=== PATIENT | female | born 1985 | race Caucasian/White ===

== ENCOUNTER 2019-10-04 12:21 | Outpatient (REF) | payer BC, SELFPAY ==
[2019-10-04 14:55] LABS: Bilirubin Negative (Negative); Blood Trace-intact (Negative); Clarity Clear (Clear); Glucose Negative (Negative); Ketones Negative (Negative); Leukocyte Esterase Small (Negative); Nitrite Negative (Negative); Urobilinogen 0.2 EU/dL (Up TO 0.2); pH 6.5 (5-8)
[2019-10-04 15:09] LABS: Bacteria Few HPF (Negative); Crystals Negative HPF (Negative); Epithelial Cells Moderate HPF (Negative); Mucus Negative (Negative); RBC 0-2 HPF (0-2)
[2019-10-04 15:10] LABS: C & S Indicated? C&S Done As Ordered
== END 2019-10-04 12:41 ==
LOC: NCHCN 12:21
PROVIDERS: PCP Nurse Practitioner Adult Health; Visit Provider Nurse Practitioner
DX: R10.31 Right lower quadrant pain (principal)
CPT/HCPCS: 81003; 81015; 87086

== ENCOUNTER 2020-02-23 12:54 | Emergency (ER) | payer BC, SELFPAY ==
[2020-02-23] VITALS (31 sets, daily range): BP systolic 98–152; BP diastolic 46–85; PULSE 68–96; RESP 1–28; TEMP 36.5–36.6; O2SAT 88–100
--- NOTE | 2020-02-23 12:59 | W.ED.GENAD ---
Discharge Plan Disposition Patient Disposition: HOME Condition: Improving Discharge Details Clinical Impression: Allergic reaction Primary Care Provider: Yvonne Singh ED Provider: Rosalva Alatorre Home Meds and New Rx's Prescriptions: New prednisone 20 mg tablet 40 mg PO DAILY Qty: 8 RF: 0 Continued multivitamin [Daily Multi-Vitamin] 1 EACH tablet 1 ea PO RF: 0 clobetasol 0.05 % ointment 1 applic TP .COMPLEX 42 Days Qty: 15 RF: 2 epinephrine 0.3 mg/0.3 mL auto-injector RF: 0 loratadine 10 mg tablet RF: 0 levalbuterol tartrate [Xopenex HFA] 45 mcg/actuation HFA aerosol inhaler INHALATION RF: 0 Discharge Instructions Instructions: General Allergic Reaction (ED) Additional Instructions: You may continue with your inhaler and Benadryl as previously advised. Please take the prednisone as prescribed. Please use your EpiPen if you develop shortness of breath, difficulty breathing, swelling of your throat or mouth. Please keep your upcoming appointment with allergy at [facility]. Please return if you have use your EpiPen or you develop other new or worsening symptoms. Referrals: Yvonne Singh [Primary Care Provider] - Discharge Data Discharge Date/Time-TO BE ENTERED AT DEPARTURE: 02/23/20 15:42 Medical Decision Making Patient is a pleasant 34-year-old female, accompanied by mother, with chief complaint of allergic reaction. She reports that approximate hour prior to arrival she began to have recurrent allergic reaction. She reports that she is had 6 of these since September, unclear what her allergen is. She reports that she does have an upcoming allergy testing scheduled at [facility]. She reports that today symptoms seem to come on more quickly and were worse than they have been historically. She reported shortness of breath, swelling around her eyes, diffuse itching. Denies any tightness or swelling of her throat but mother does feel that the patient has had a more hoarse voice than typical. She denies any GI upset. Patient does report that she has a history of asthma, used her inhaler with good relief. Took 50 of Benadryl prior to arrival. Patient and her mother feel that she is improving at this time. On exam, patient has swelling around her bilateral eyes. She does appear slightly pink but did not appreciate any urticaria. Her lungs are clear, she seems to moving air well and is speaking in full sentences. However, she is hypoxic with O2 of 89% on room air. Oxygen was applied. Patient, her mother and I did discuss utility of epi based on her hypoxia. However, as she is improving for both of those accounts, will hold off on this. Epi is in the room in the event that the patient does deteriorate further. Patient will be given famotidine, Solu-Medrol and albuterol updraft. Discussed this plan with the patient and her mother in agreement. I also advised that they try to get her allergy testing without. Patient is already prescribed EpiPen's and has 2 of them with her. She did not utilize these today. Patient is responding well to the nasal cannula O2. Patient received the above intervention. The redness has subsided as has her SOB, feeling of swelling in her throat. She reports feeling back to baseline. Monitored patient for another 2 hours without return of symptoms. She is feeling well and would like to go home. She lives with and is with her mother currently. She is able to return quickly if symptoms return. We again discussed how/when to use her epi pen. will put patient on a steroid burst. She was given return precautions. She will keep upcoing appointment with destination specialist, mother called and got this moved up. All of their questions and concerns were addressed, she is in agreement with this plan. HPI General Mode of arrival: ambulatory. Date/Time Provider Initiated Documentation: 02/23/20 12:59. Limitations to Documentation: no limitations. Information obtained by: patient, family (mother) and RN notes reviewed. HPI Narrative: Patient is a pleasant 34 year old female presenting today with c/c of allergic reaction. States that this year she has begun to have repetative reactions to uknown allergen. States taht she has had 6 in this calendar year. Today is much worse than previous. Typically, symptoms resolve with PO Benadryl. She took 50mg Benadryl prior to arrial. Reports that overall she is feeling improved although she still is very itchy, short of breath and feels swelling in her throat. She is carrying 2 unopened epi pens with her. Related Data Home Medications Medication Instructions Recorded Confirmed multivitamin [Daily Multi-Vitamin] 1 ea PO 05/29/13 09/20/18 clobetasol 0.05 % topical ointment 1 applic TP .COMPLEX 42 Days #15 gm 06/02/19 02/23/20 epinephrine 02/23/20 levalbuterol tartrate [Xopenex HFA] INHALATION 02/23/20 02/23/20 loratadine mg 02/23/20 02/23/20 prednisone 40 mg PO DAILY #8 tab 02/23/20 Previous Rx's Medication Instructions Recorded clobetasol 0.05 % topical ointment 1 applic TP .COMPLEX 42 Days #15 gm 06/02/19 prednisone 40 mg PO DAILY #8 tab 02/23/20 Allergies Allergy/AdvReac Type Severity Reaction Status Date / Time Sulfa (Sulfonamide Allergy Verified 02/23/20 13:33 Antibiotics) Review of Systems Constitutional Constitutional: Reports as per HPI, Denies chills, Denies fever(s) and Denies headache(s) ENT Ears, Nose, Mouth, and Throat: Denies headache(s) Cardiovascular Cardiovascular: Reports as per HPI, Denies chest pain, Reports dyspnea and Denies dyspnea on exertion Respiratory Respiratory: Reports as per HPI, Denies cough, Reports dyspnea, Denies dyspnea on exertion, Denies stridor and Denies wheezing Integumentary/Breasts Skin/Breast: Reports as per HPI and Reports rash Neurologic Neurologic: Denies headache(s) Allergic/Immunologic Allergic/Immunologic: Denies wheezing PFSH Medical History Calculus of gallbladder with acute cholecystitis Kidney stone Lichen sclerosus Surgical History Cholecystectomy nephrolithiasis Family History Other Diabetes Social History Smoking/Tobacco Use Status: Never Alcohol Intake: current Alcohol Intake frequency: a few times a month Substance use type: does not use Do you feel safe at home: Yes Do you feel safe in your relationship?: Yes History History 3 Para 3 Hx # Term Pregnancies Multiple births Hx # Pregnancies Ectopic pregnancies AB induced Hx Number of Living Children AB spontaneous Exam Const General: cooperative, comfortable, no acute distress, in distress mild and anxious Nutritional Appearance: average body habitus and well nourished Orientation: alert and awake [facility] Head: normal to inspection General nose exam: external nose normal Face and sinus: normal facial exam and face symmetric Mouth: oral mucosae normal, lip normal, tongue normal, oropharynx normal, moist mucous membranes, no drooling and no muffled voice Teeth and gingiva: dentition normal Throat: posterior oropharynx normal, tonsils normal and uvula midline Eyes General: appearance abnormal, both eyes (swelling around eyes, otherwise WNL) Resp Effort & Inspection: normal respiratory effort, able to speak in complete sentences, no respiratory distress and no stridor Auscultation: clear to auscultation bilaterally and no wheezes Cardio Rate: regular rate Rhythm: regular rhythm Heart Sounds: S1 normal and S2 normal GI Inspection: normal to inspection Palpation: soft and nontender Skin General skin exam: erythema (no raised areas but majority of her skin has pink tint) Neuro General: patient alert and patient awake Cognition: normal cognition Speech: speech normal Gait: normal gait Psych Appearance: grossly normal and well kempt Mental Status: mental status grossly normal Speech and Movement: speech and movement normal
[2020-02-23] MEDS: methylPREDNISolone SUCC 125 MG VIAL IVP (13:26)
[2020-02-23] MEDS: FAMOTIDINE 20 MG/50 ML BAG 200 MG IVPB (13:27)
[2020-02-23] MEDS: Albuterol 2.5 MG/3 ML INH SOLN VIAL UPD (13:28)
== END 2020-02-23 15:42 | disposition home or self-care (01) ==
PROVIDERS: Emergency Provider Physician Assistant; PCP Nurse Practitioner Adult Health
DX: H05.223 Edema of bilateral orbit (principal); R09.89 Other specified symptoms and signs involving the circulatory and respiratory systems; R06.02 Shortness of breath; L29.9 Pruritus, unspecified; R09.02 Hypoxemia
CPT/HCPCS: 94640; 96365; 96375; 99285; 99284; J2930; J7613

== ENCOUNTER 2020-10-10 18:48 | Outpatient (REF) | payer BC, SELFPAY | END 2020-10-10 18:49 | disposition home or self-care (01) | LOC: NCHCN 18:48 | PROVIDERS: PCP Nurse Practitioner Adult Health; Visit Provider Physician Assistant Medical | DX: L23.9 Allergic contact dermatitis, unspecified cause (principal) | CPT/HCPCS: 83520 ==

== ENCOUNTER 2020-10-31 19:19 | Outpatient (REF) | payer BC, SELFPAY ==
[2020-10-31 20:54] LABS: ALT 34 U/L (14-59); AST 18 U/L (15-37); Albumin 3.8 g/dL (3.4-5.0); Alkaline Phosphatase 73 U/L (46-116); Anion Gap 10.7 mmol/L (3-11); BUN 9 mg/dL (7-18); Bilirubin, Total 0.3 mg/dL (0.2-1.0); CO2 26.3 mmol/L (21.0-32.0); CREATININE 0.8 mg/dL (0.55-1.02); Chloride 103 mmol/L (98-107); Glucose 88 mg/dL (74-106); Potassium 4.7 mmol/L (3.5-5.1); Sodium 140 mmol/L (136-145); TSH (W/Ref FT4) 1.84 uIU/mL (0.36-3.74); Total Protein 7.5 g/dL (6.4-8.2)
== END 2020-10-31 19:20 | disposition home or self-care (01) ==
LOC: NCHCN 19:19
PROVIDERS: PCP Nurse Practitioner Adult Health; Visit Provider Nurse Practitioner
DX: R63.5 Abnormal weight gain (principal); F41.9 Anxiety disorder, unspecified; J45.30 Mild persistent asthma, uncomplicated; Z13.29 Encounter for screening for other suspected endocrine disorder
CPT/HCPCS: 80053; 84443

== ENCOUNTER 2021-06-23 10:46 | Outpatient (REF) | payer BC, SELFPAY ==
--- NOTE | 2021-06-23 10:00 | PAPFT_PTH ---
PATIENT: Heaven Parr LOC: [facility] U#:[id number] AGE/SX: 36/F ROOM: RE06/23/[address]: VERITO Garcia : 1985 BED: DIS: 06/23/2021 SPEC #: [id number] RECD: 06/23/21 12:58 STATUS: ARNOL REQ #: [id number] OC: 06/23/21 10:[address]: Sariah Rose DEPT: [facility] Cytology RECD BY: Cynthia Stanley ENTERED: 06/23/21 12:58 SP TYPE: PAPFT OTHR DR: Yvonne Singh Tissues: 1 - CX/ENDOCX FOR PAP SMEARS Procedures: PAP THIN PREP/UVM Screening HPV DNA PROBE Comments: [id number]
== END 2021-06-23 10:47 | disposition home or self-care (01) ==
LOC: LBN 10:46
PROVIDERS: PCP Nurse Practitioner Adult Health; Visit Provider Nurse Practitioner Family
DX: Z12.4 Encounter for screening for malignant neoplasm of cervix (principal); Z11.51 Encounter for screening for human papillomavirus (HPV)
CPT/HCPCS: 88142; 87624

== ENCOUNTER → 2023-02-19 18:26 | Outpatient (CLI) | payer BC, SELFPAY ==
--- NOTE | 2023-02-19 | DI.RAD_ITS ---
Exam(s) XR CHEST 2V PA LATERAL EXAM: XR CHEST 2V PA LATERAL CLINICAL HISTORY: COUGH R05.8 TECHNIQUE: 2D digital imaging was performed. COMPARISON: No exams were available for comparison FINDINGS: HEART: Normal size. Aorta: Not dilated. PULMONARY VASCULATURE: Normal. LUNGS: Clear. PLEURAL SPACE: No pleural effusion or pneumothorax. BONE:Unremarkable for age. IMPRESSION: No acute abnormality. DATA REPOSITORY: RADIATION DOSE DELIVERED:
== END ==
PROVIDERS: PCP Nurse Practitioner Adult Health; Visit Provider Physician Assistant Medical
DX: R05.8 Other specified cough (principal)
CPT/HCPCS: 71046

== ENCOUNTER 2023-02-19 21:09 | Outpatient (REF) | payer BC, SELFPAY ==
[2023-02-19 14:55] LABS: Source Nasal/Nares
[2023-02-19 15:29] LABS: COVID-19 PCR Negative (Negative)
[2023-02-19 15:30] LABS: Abs Immature Grans 0.04 10^3/uL (0.0-0.06); Absolute Basophil Count 0.05 10^3/uL (0.0-0.2); Absolute Lymphocyte Count 1.28 10^3/uL (1.2-3.4); Absolute Monocyte Count 0.74 10^3/uL (0.1-0.8); Absolute Neutrophil Count 9.91 10^3/uL (1.2-6.7); Basophils % 0.4; Eosinophils % 2.4; HCT 41.1 % (36.0-46.0); HGB 14.2 g/dL (11.2-15.7); Immature Grans % 0.3; Lymphocytes % 10.4; MCH 29.2 pg (27.0-33.0); MCHC 34.5 % (32.0-36.0); MCV 85 fL (80-95); MPV 10.4 fL (8.0-11.0); Neutrophils % 80.5; Platelet Count 372 10^3/uL (130-400); RBC 4.86 10^6/uL (3.93-5.22); RDW 13.6 % (11.7-14.6); RDW-SD 42.1 fL; WBC 12.31 10^3/uL (4.4-10.8)
== END 2023-02-19 21:10 | disposition home or self-care (01) ==
LOC: LBN 21:09
PROVIDERS: PCP Nurse Practitioner Adult Health; Visit Provider Physician Assistant Medical
DX: Z20.822 Contact with and (suspected) exposure to COVID-19 (principal); R09.89 Other specified symptoms and signs involving the circulatory and respiratory systems
CPT/HCPCS: 87635; 85025

== ENCOUNTER 2023-02-20 06:59 | Emergency (ER) | payer BC, SELFPAY ==
[2023-02-20 07:03] VITALS: BP 122/72; PULSE 87; RESP 16; TEMP 37; O2SAT 94
--- NOTE | 2023-02-20 08:02 | ED.GENADUL_ITS ---
Discharge Plan Disposition Patient Disposition: Home Discharge Details Clinical Impression: Upper respiratory infection Primary Care Provider: Yvonne Singh ED Provider: Farzaneh Leiva Home Meds and New Rx's Prescriptions: No Action nystatin 100,000 unit/gram cream 1 applic topical BID Qty: 30 1RF multivitamin [Daily Multi-Vitamin] 1 EACH tablet 1 ea PO DAILY fluticasone propion-salmeterol [Advair Diskus] 250-50 mcg/dose blister with device 1 inh inhalation Q12H epinephrine 0.3 mg/0.3 mL auto-injector 0.3 mg IM PRN PRN Patient Comments: USE DIRECTED levalbuterol tartrate [Xopenex HFA] 45 mcg/actuation HFA aerosol inhaler 2 puff INHALATION PRN PRN Patient Comments: INHALE 2 PUFFS INTO LUNGS EVERY 6 HOURS NEEDED cetirizine [Zyrtec] 10 mg Tablet 10 mg PO DAILY Discharge Instructions Instructions: Upper Respiratory Infection (ED) Additional Instructions: Call your primary care doctor today to schedule an appointment early next week to follow up on your visit here. Return to the emergency department for new or worsening symptoms including chest pain (especially pain when breathing in), shortness of breath that does not improve with treatment, feeling like you are going to pass out, swelling in your legs, or if you have any other concerns. Discharge Data Discharge Date/Time-TO BE ENTERED AT DEPARTURE: 02/20/23 08:22 Medical Decision Making 37yo F with hx of asthma presenting for low home O2 sat; seen at urgent care yesterday for shortness of breath which improved after two nebulizer treatments, discharged on prednisone, had normal CXR at that time per patient. Reports that at home this morning her home pulse ox showed a sat of 91-92%. No shortness of breath currently or earlier this morning. Vital signs reassuring, O2 sat here 94% on room air. Slight expiratory wheeze on exam. No shortness of breath, pleurtic pain, or tachcyardia to suggest PE and no signficant risk factors for pulmonary embolism. With borderline low sat here warrants consideration though viral URI and asthma with some wheezing on exam are more likely. Discussed with patient potential of performing d-dimer followed up by CT imaging if positive, including risks/benefits of CT, risks of pulmonary embolism, and potential false-positive on dimer. After shared decision making, elected to forgo further testing and monitor closely for other symptoms which is reasonable. Discharged home; discharge instructions including return precautions were reviewed with patient who verbalized understanding. All questions were answered and they are in full agreement with the plan. HPI General Mode of arrival: ambulatory . Date/Time Provider Initiated Documentation: 02/20/23 07:39 . Limitations to Documentation: no limitations . Information obtained by: patient . HPI Narrative: 37yo F with hx of asthma presenting for low home O2 sat. Has had several days of URI symptoms, COVID negative. Seen at urgent care yesterday for shortness of breath; improved after two nebulizer treatments. She was also started on a course of prednisone. She was advised to check her oxygen at saturation at home. This morning was 91-92% on home pulse ox and so she presented for evaluation. No shortness of breath at this time. Has been using her home inhaler regularly. No fevers, chills, or cough. No chest pain including no pleuritic pain. No lightheadedness. No LE edema. No recent travel/trauma/ surgery, no prior hx of blood clots, no hormone exposures. She is otherwise in her usual state of health. Related Data Home Medications Medication Instructions Recorded Confirmed multivitamin (Daily Multi-Vitamin 1 ea PO DAILY 05/29/13 02/20/23 tablet) epinephrine 0.3 mg/0.3 mL 0.3 mg IM PRN PRN 02/23/20 02/20/23 injection, auto-injector levalbuterol tartrate 45 2 puff inhalation PRN PRN 02/23/20 02/20/23 mcg/actuation aerosol inhaler (Xopenex HFA) fluticasone 250 mcg-salmeterol 50 1 inh inhalation Q12H 12/24/20 02/20/23 mcg/dose blistr powdr for inhalation (Advair Diskus) nystatin 100,000 unit/gram topical 1 applic topical BID #30 grams 07/28/21 02/20/23 cream cetirizine 10 mg tablet (Zyrtec) 10 mg PO DAILY 02/20/23 02/20/23 Previous Rx's Medication Instructions Recorded nystatin 100,000 unit/gram topical 1 applic topical BID #30 grams 07/28/21 cream Allergies Allergy/AdvReac Type Severity Reaction Status Date / Time Sulfa (Sulfonamide Allergy Verified 02/20/23 07:10 Antibiotics) General Stated Complaint: Recheck HERLINDA: 4 Review of Systems Narrative: see HPI PFSH All Active Problems (Updated 02/20/23 @ 08:05 by Farzaneh Leiva MD) Upper respiratory infection (Acute) Yeast dermatitis (Acute) Vulvar irritation (Acute) Asthma (Chronic) Abdominal pain, right lower quadrant (Acute) Cyst (Acute) Weight gain (Acute) Lichen sclerosus (Acute) Medical History Anxiety Calculus of gallbladder with acute cholecystitis Contact allergic reaction Kidney stone Loose stools Right flank pain Surgical History Cholecystectomy nephrolithiasis Family History Father Kidney failure Mother Well adult Other Diabetes Social History Smoking/Tobacco Use Status: Never Smoking risk assessment performed?: Yes Alcohol Intake: current Alcohol Intake frequency: a few times a month Alcohol type: wine Drug use: Never Substance use type: does not use Do you feel safe at home: Yes Do you feel safe in your relationship?: Yes History History 3 Para 3 Hx # Term Pregnancies Multiple births Hx # Pregnancies Ectopic pregnancies AB induced Hx Number of Living Children AB spontaneous Exam Narrative Exam Narrative: General: Alert, well appearing, well nourished, in no acute distress. Head: Normocephalic, atraumatic Neck: Trachea midline, Neck supple. Cardiac: RRR, no murmurs appreciated Resp: No respiratory distress. Slight expiratory wheeze. Abd: Soft, non-distended, nontender : No suprapubic tenderness. No CVA tenderness. Extremities: No deformities. No peripheral edema. Neurologic: GCS 15. Moves all extremities freely against gravity Course Vital Signs Vital signs: Vital Signs Temperature 37.0 C 02/20/23 07:03 Pulse 87 02/20/23 07:03 Respiratory Rate 16 02/20/23 07:03 Blood Pressure 122/72 02/20/23 07:03 Pulse Oximetry 94 02/20/23 07:03 Temperature 37.0 C 02/20/23 07:03 Temperature Source Oral 02/20/23 07:03 Pulse 87 02/20/23 07:03 Respiratory Rate 16 02/20/23 07:03 Respiratory Effort Normal, Non-Labored 02/20/23 07:11 Blood Pressure 122/72 02/20/23 07:03 Blood Pressure Position Sitting 02/20/23 07:03 Pulse Oximetry 94 02/20/23 07:03 Oxygen Delivery Method Room Air 02/20/23 07:03 Oxygen Flow Rate 0 02/20/23 07:03 Pain Level 1 02/20/23 07:03 PAWSS Have you Been Recently Intoxicated or Drunk Within the Last 30 days?: No Have you Ever Experienced Previous Episodes of Alcohol Withdrawal?: No Have you ever Experienced Withdrawal Seizures?: No Have you ever Experienced Delirium Tremens(DT)s?: No Have you ever undergone Alcohol Rehabilitation Treatment (i.e, inpt ot outpatient treatment programs)?: No Have you ever Experienced Blackouts?: No Have you ever Combined Alcohol with other Downers within the last 90 days?: No Have you ever Combined Alcohol with any other Substance of Abuse during the last 90 days?: No Positive Blood Alcohol level on Presentation? [PCS.BAL]: No Evidence of Increased Autonomic Activity (i.e. HR>120, tremor, sweating, agitation, nausea)?: No Result: 0
== END 2023-02-20 08:22 | disposition home or self-care (01) ==
PROVIDERS: Emergency Provider Student in an Organized Health Care Education/Training Program; PCP Nurse Practitioner Adult Health
DX: J06.9 Acute upper respiratory infection, unspecified (principal)
CPT/HCPCS: 99281; 99282

== ENCOUNTER 2024-03-03 00:22 | Outpatient (CLI) | payer BC, SELFPAY ==
--- NOTE | 2024-03-03 07:00 | DI.MAMMO_ITS ---
Exam(s) MAMMO SCREENING EXAM: MAMMO SCREENING CLINICAL HISTORY: screening,z12.39 TECHNIQUE: Bilateral full field digital CC and MLO mammographic images were obtained with 3D tomosyn thesis and utilizing computer aided detection (CAD). COMPARISON: This is a baseline examination. FINDINGS: Masses/Architectural Distortion: None seen. Microcalcifications: No suspicious pleomorphic-type are seen. Skin Thickening/Nipple Retraction: None. IMPRESSION: 1. No evidence for malignancy is identified. 2. Unless there is more urgent need, screening mammography is recommended, as per [employer] guidelines. BI-RADS Category 1 - Negative Breast Density - Category B - Scattered areas of fibroglandular density Breast density category C or D implies that the patient has dense breast tissue. Dense breast tissue is very common and is not abnormal but dense breast tissue can make it harder to find cancer on a ma mmogram. Also, dense breast tissue may increase their breast cancer risk. This information about the result of the mammogram report was provided to the patient to raise their awareness. Use this report when you speak with the patient about their risks for breast cancer, which includes their family hist ory. At that time, you may recommend for more screening tests (Ultrasound or MRI) as they might be us eful based on their risk. A negative radiographic report should not delay biopsy if a dominant or clinically suspicious mass is present. Up to ten percent of cancers are not identified on mammography. A negative report may reinforce clinical impression. Adenosis and dense breasts may obscure an underlying neoplasm. False positive reports average 6 to 10%. Patient will receive a letter notifying them of these results.
== END 2024-03-03 00:42 ==
PROVIDERS: Visit Provider Advanced Practice Midwife
DX: Z12.31 Encounter for screening mammogram for malignant neoplasm of breast (principal)
CPT/HCPCS: 77063; 77067